=== PATIENT | male | born 1930 | race Hispanic/Latino ===

== ENCOUNTER 2018-03-21 00:34 | Observation (INO) | payer OTHER, MEDICARE ==
[2018-03-21] VITALS (7 sets, daily range): BP systolic 117–202; BP diastolic 54–76
[~2018-03-21] VITALS: Ht 160 cm; Wt 72.3 kg
[~2018-03-21 00:34] MED LIST: ALBUHFA IH; ALEN70TA47 PO; AMMO225L14 TP; ATOR20TA65 PO; AZIT250T9 PO; BENZ-51 PO; CARV6.25 PO; CLOP75TA32 PO; CYAN500 PO; ERGO500014 PO; FERR325T22 PO; GLIP5TAB97 PO; HYDR25TA PO; INSU3INS3 SQ; LEVO88TA7 PO; OLOP2.5D OU; PIOG30TA70 PO; SITA100T12 PO
[2018-03-21] MEDS ORDERED: NITROGLYCERIN 0.4 MG SL TAB SL ONE (00:55)
[2018-03-21 01:05] LABS: BASOPHILS % (AUTO) 0.7 % (0.0-5.0); EOSINOPHILS % (AUTO) 11.2 % (0.0-8.0); HEMATOCRIT 36.1 % (42-54); MEAN CORPUSCULAR HGB CONC 34.9 g/dL (32.0-36.0); MEAN CORPUSCULAR VOLUME 91.5 fL (79-99); MONOCYTES % (AUTO) 6.6 % (3.0-13.0); NEUTROPHILS % (AUTO) 71.5 % (40.0-77.0); NUCLEATED RED BLOOD CELLS 0.1 % (0.0-0.19); PLATELET COUNT (AUTO) 189 K/uL (130-400); RED BLOOD CELL COUNT(AUTO) 3.94 MIL/uL (4.50-6.20); RED CELL DISTRIBUTION WIDTH 14.2 % (11.0-15.5); WHITE BLOOD COUNT (AUTO) 10.9 K/uL (4.8-10.8)
[2018-03-21 01:11] LABS: CREATININE 1.3 mg/dL (0.5-1.5); POTASSIUM 4.4 mmol/L (3.5-5.1)
[2018-03-21 01:12] LABS: PARTIAL THROMBOPLASTIN TIME 26.8 SEC (26.3-35.5); PROTHROMBIN TIME 10.5 SEC (9.6-11.6)
[2018-03-21 01:16] LABS: ALBUMIN 3.7 g/dL (3.5-5.0); BILIRUBIN,TOTAL 0.6 mg/dL (0.2-1.0); TOTAL PROTEIN, SERUM 6.8 g/dL (6.0-8.3)
[2018-03-21 01:25] LABS: CREATINE KINASE MB 5.7 ng/mL (0.5-3.6)
[2018-03-21] MEDS ORDERED: POTASSIUM CHLORIDE 10% ELIXIR 20 MEQ/15 ML UDCUP PO PRN (03:30)
[2018-03-21] MEDS ORDERED: DEXTROSE 50%-WATER 50 ML DISP.SYRIN IV PRN (03:30)
[2018-03-21] MEDS ORDERED: GLUCAGON 1MG KIT 1 MG ML IM PRN (03:30)
[2018-03-21] MEDS ORDERED: ACETAMINOPHEN 325 MG TAB PO PRN ×2 (03:30)
[2018-03-21] MEDS ORDERED: POTASSIUM CHLORIDE 20MEQ/100ML 100 ML IV PRN (03:30)
[2018-03-21] MEDS ORDERED: LACTULOSE 20 GM/30 ML UDCUP PO PRN (03:30)
[2018-03-21] MEDS ORDERED: POTASSIUM CHLORIDE 20 MEQ ERTAB PO PRN (03:30)
[2018-03-21] MEDS ORDERED: NITROGLYCERIN 0.4 MG SL TAB SL PRN (03:30)
[2018-03-21] MEDS ORDERED: LIDOCAINE HCL-MPF 1% 2ML VIAL IJ PRN (03:30)
[2018-03-21] MEDS: INSULIN R PO SS1 SQ SCH ×4 (05:38→21:59)
[2018-03-21] MEDS ORDERED: INSULIN HUMULIN R 100 UNIT/ML 3ML ONE (05:40)
[2018-03-21] MEDS ORDERED: HYDRALAZINE HCL 20 MG/ML VIAL IV PRN (06:00)
[2018-03-21] MEDS ORDERED: LEVOFLOXACIN 500 MG/D5W 100 ML 100 ML IV SCH (06:00)
[2018-03-21] MEDS: IPRATROPIUM/ALBUTEROL SULFATE 3 ML SOLUTION IH SCH ×4 (07:00→23:13)
[2018-03-21 08:18] LABS: HEMATOCRIT 36.4 % (42-54); MEAN CORPUSCULAR HEMOGLOBIN 31.7 pg (27.0-33.0); MEAN CORPUSCULAR HGB CONC 34.8 g/dL (32.0-36.0); MEAN CORPUSCULAR VOLUME 91.2 fL (79-99); NUCLEATED RED BLOOD CELLS 0.1 % (0.0-0.19); PLATELET COUNT (AUTO) 193 K/uL (130-400); RED BLOOD CELL COUNT(AUTO) 3.99 MIL/uL (4.50-6.20); RED CELL DISTRIBUTION WIDTH 13.9 % (11.0-15.5); WHITE BLOOD COUNT (AUTO) 16.6 K/uL (4.8-10.8)
[2018-03-21 08:23] LABS: CHOLESTEROL 113 mg/dL (<200); HDL CHOLESTEROL 52 mg/dL (29-71); LDL DIRECT 52 mg/dL (0-99); TRIGLYCERIDES 63 mg/dL (30-200)
[2018-03-21] MEDS ORDERED: METHYLPREDNISOLONE SOD SUCC 125MG/2ML VIAL IVP SCH (09:00)
[2018-03-21 09:07] LABS: CARBON DIOXIDE 30 mmol/L (21-32); CHLORIDE 102 mmol/L (101-111); CREATINE KINASE MB 4.6 ng/mL (0.5-3.6); CREATINE KINASE, TOTAL 136 U/L (21-232); CREATININE 1.3 mg/dL (0.5-1.5); GLOMERULAR FILTR. RATE CALC 55 mL/min (>60); GLUCOSE,RANDOM 166 mg/dL (70-105); MYOGLOBIN 167 ng/mL (10-92); POTASSIUM 4.7 mmol/L (3.5-5.1); SODIUM SERUM 139 mmol/L (136-145); TROPONIN I < 0.04 ng/mL (0.00-0.06); UREA NITROGEN, BLOOD 25 mg/dL (7-18)
[2018-03-21] MEDS: ASPIRIN 325 MG TABLET PO SCH (10:09)
[2018-03-21] MEDS: FAMOTIDINE 20MG TAB 20 MG TAB PO SCH (10:09)
[2018-03-21] MEDS: METOPROLOL TARTRATE 25 MG TAB PO SCH ×2 (10:09→19:45)
[2018-03-21] MEDS ORDERED: IOPAMIDOL-370 100 ML VIAL IV ONE (10:12)
[2018-03-21] MEDS ORDERED: MORPHINE SULFATE 4 MG/1ML SYG IVP PRN (10:15)
[2018-03-21] MEDS ORDERED: HYDROCODONE/ACETAMINOPHEN 5/325 MG TAB PO PRN (10:15)
[2018-03-22 03:05] VITALS: BP 137/67
[2018-03-22] MEDS: INSULIN R PO SS1 SQ SCH ×2 (05:45→12:30)
[2018-03-22] MEDS: IPRATROPIUM/ALBUTEROL SULFATE 3 ML SOLUTION IH SCH ×2 (05:51→11:14)
[2018-03-22 07:45] VITALS: BP 156/80
[2018-03-22] MEDS: FAMOTIDINE 20MG TAB 20 MG TAB PO SCH (10:07)
[2018-03-22] MEDS: ASPIRIN 325 MG TABLET PO SCH (10:07)
[2018-03-22] MEDS: METOPROLOL TARTRATE 25 MG TAB PO SCH (10:07)
[2018-03-22 11:26] VITALS: BP 148/64
== END 2018-03-22 15:50 | disposition home or self-care (01) ==
LOC: EDH 00:34 → EDHIP 03:01 → 2DH 03:46
PROVIDERS: ADMIT Family Medicine; ATTEND Family Medicine
DX: R07.89 Other chest pain (principal); I12.9 Hypertensive chronic kidney disease with stage 1 through stage 4 chronic kidney disease, or unspecified chronic kidney disease; E11.22 Type 2 diabetes mellitus with diabetic chronic kidney disease; I25.10 Atherosclerotic heart disease of native coronary artery without angina pectoris; N18.9 Chronic kidney disease, unspecified; E03.9 Hypothyroidism, unspecified; E78.5 Hyperlipidemia, unspecified; M81.0 Age-related osteoporosis without current pathological fracture; N64.4 Mastodynia; W19.XXXA Unspecified fall, initial encounter; Y93.89 Activity, other specified; Y92.89 Other specified places as the place of occurrence of the external cause; Y99.8 Other external cause status; Z83.3 Family history of diabetes mellitus; Z87.891 Personal history of nicotine dependence; Z79.899 Other long term (current) drug therapy
CPT/HCPCS: 36415; 71045; 71275; 80048; 80053; 80061; 82550 ×2; 82553 ×2; 82948 ×7; 83690; 83874; 84484 ×2; 85025; 85027; 85610; 85730; 93005 ×3; 94640 ×6; 94664; 96365; 96372 ×2; 97116; 97161; 99291; G0378 ×37; G8978; G8979; G8980; G8981; G8982; G8983; J1815 ×2; J1956; J2930; Q9967

== ENCOUNTER 2018-12-12 10:47 | Emergency (ER) | payer OTHER, MEDICARE ==
[~2018-12-12 10:47] MED LIST changes: +ALEN70TA10 PO; -ALEN70TA47 PO
== END 2018-12-12 13:30 | disposition home or self-care (01) ==
LOC: EDH 10:47
DX: S06.0X0A Concussion without loss of consciousness, initial encounter (principal); S63.692A Other sprain of right middle finger, initial encounter; S40.012A Contusion of left shoulder, initial encounter; I25.10 Atherosclerotic heart disease of native coronary artery without angina pectoris; E11.9 Type 2 diabetes mellitus without complications; E78.5 Hyperlipidemia, unspecified; I10 Essential (primary) hypertension; M81.0 Age-related osteoporosis without current pathological fracture; E07.9 Disorder of thyroid, unspecified; Z88.0 Allergy status to penicillin; Z79.4 Long term (current) use of insulin; Z91.81 History of falling; W18.39XA Other fall on same level, initial encounter; Y93.01 Activity, walking, marching and hiking; Y92.89 Other specified places as the place of occurrence of the external cause; Y99.8 Other external cause status
CPT/HCPCS: 70450; 71045; 73030; 73130